=== PATIENT | female | born 1955 | race Caucasian/White ===

== ENCOUNTER 2023-09-05 11:50 | Outpatient (OUT) | payer OTHER, SELFPAY ==
[2023-09-05 12:23] LABS: Basophils Absolute Auto 0.1 10^3/uL (0.0-0.1); Basophils Percent Auto 1.2 % (0.2-2.0); Eosinophils Absolute Auto 0.1 10^3/uL (0.0-0.7); Eosinophils Percent Auto 1.6 % (0.9-7.0); Hematocrit 36.4 % (36.0-48.0); Hemoglobin 12.1 g/dL (12.0-16.0); Immature Granulocytes Abs Auto 0.02 10^3/uL (0.00-0.03); Immature Granulocytes Pct Auto 0.5 % (0.0-0.5); Lymphocytes Absolute Auto 1.6 10^3/uL (1.2-3.8); Lymphocytes Percent Auto 37.8 % (20.5-60.0); Mean Corpuscular HGB Conc 33.2 g/dL (29.9-35.2); Mean Corpuscular Hemoglobin 29.7 pg (26.7-34.0); Mean Corpuscular Volume 89.2 fL (81.0-99.0); Mean Platelet Volume 9.2 fL (9.5-13.5); Monocytes Absolute Auto 0.4 10^3/uL (0.3-0.8); Monocytes Percent Auto 8.1 % (1.7-12.0); Neutrophils Absolute Auto 2.2 10^3/uL (1.4-6.5); Neutrophils Percent Auto 50.8 % (43.0-75.0); Platelet Count 204 10^3/uL (150-450); Red Blood Count 4.08 10^6/uL (4.20-5.40); White Blood Count 4.3 10^3/uL (4.0-11.0)
--- NOTE | 2023-09-05 12:39 | CA_ITS ---
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: : [id number] Requested By: VALDO DUNCAN Order Number: [id number] Reading MD: SUSAN ORDOÑEZ Interpretive Statements Predominant rhythm is sinus with average rate of 85 bpm TAchycardia (22% burden) - max rate of 230 bpm (associatd with brief episdoe of PSVT) - 23 episodes of PSVT w/ longest duration 44 bpm - longest episode of 3h 53m with rates between 116-137 bpm Bradycardia - min rate of 52 bpm - longest episode of 2m 30s with rates between 52-58 bpm Ventricular ectopy - 18 PVC Patient triggered events: 4 - associated with symptoms of palpitations, SOB and lightheadedness - associated with rates of 101 bpm and the remainder NSR IMpression: Predominant rhythm is sinus with average rate of 85 bpm Fastest rate of 230 bpm and slowest rate of 52 bpm 18 PVC 23 episodes of PSVT Fastest rate of 230 associated with brief episode of PSVT Tachycardia burden of 22% total No atrial fib No blocks or pauses Electronically Signed On 10-01-2023 7:22:55 EST by SUSAN ORDOÑEZ
[2023-09-05 12:40] LABS: Estimated Average Glucose 120 mg/dL; Glycohemoglobin A1C 5.8 % (4.5-6.2)
[2023-09-05 13:03] LABS: Microalbumin Urine Random <1.3 mg/dL (<=30.0)
[2023-09-05 13:07] LABS: Free T4 2.09 ng/dL (0.76-1.46)
[2023-09-05 13:17] LABS: Alanine Aminotransferase 40 U/L (14-59); Albumin Globulin Ratio 1.1; Albumin Level 3.5 g/dL (3.4-5.0); Alkaline Phosphatase 68 U/L (46-116); Anion Gap 14.5; Aspartate Amino Transferase 19 U/L (15-37); BUN Creatinine Ratio 31.1; Bilirubin Direct 0.2 mg/dL (0.0-0.2); Bilirubin Total 0.9 mg/dL (0.2-1.0); Calcium 8.5 mg/dL (8.5-10.1); Carbon Dioxide 27.9 mmol/L (21.0-32.0); Chloride 105 mmol/L (98-107); Chol HDL Ratio 2.6; Cholesterol 188 mg/dL (<=200); Estimated GFR (African America >60 (>=60); Estimated GFR (Non-African Ame >60 (>=60); Free T3 3.06 pg/mL (2.18-3.98); Globulin 3.1 g/dL; Glucose 94 mg/dL (74-106); HDL Cholesterol 71 mg/dL (40-60); Potassium 3.4 mmol/L (3.5-5.1); Sodium 144 mmol/L (136-145); Thyroid Stimulating Hormone <0.007 uIU/mL (0.358-3.740); Total Protein 6.6 g/dL (6.4-8.2); Triglycerides 59 mg/dL (<=150); VLDL CHOLESTEROL 11.8 mg/dL
== END 2023-09-05 11:51 | disposition home or self-care (01) ==
LOC: CARD 11:54
PROVIDERS: PCP Family Medicine; Visit Provider Family Medicine
DX: R00.2 Palpitations (principal); E11.65 Type 2 diabetes mellitus with hyperglycemia; I10 Essential (primary) hypertension; Z79.899 Other long term (current) drug therapy; E03.9 Hypothyroidism, unspecified; E78.5 Hyperlipidemia, unspecified
CPT/HCPCS: 36415; 80048; 80061; 80076; 82043; 83036; 84439; 84443; 84481; 85025; 93246

== ENCOUNTER 2024-04-16 09:43 | Outpatient (OUT) | payer OTHER, SELFPAY ==
--- OUTSIDE RECORDS SUMMARY | 2024-04-16 09:47 | XMS_ITS | CCD ---
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 Name Role Phone DR VALDO DUNCAN Attending Unavailable DR VALDO DUNCAN Consulting Unavailable DR VALDO DUNCAN Primary Care Unavailable DR VALDO DUNCAN Admitting Unavailable Marlin Verduzco Unavailable VALDO DUNCAN Attending Unavailable VALDO DUNCAN Attending Unavailable VALDO DUNCAN Attending Unavailable MOMO HIGUERA Attending Unavailable MOMO HIGUERA Referring Unavailable Medications Current Medications Medication Drug Class(es) Dates Sig (Normalized) Sig (Original) glipiZIDE (1 source) Sulfonylurea glipiZIDE Active levothyroxine sodium 0.2 mg oral tablet (1 source) l-Thyroxine Synthroid 200 MCG 0.5 tablet every morning on an empty stomach Orally Once a day for 30 day(s) Active lisinopril 20 mg oral tablet (1 source) Angiotensin Converting Enzyme Inhibitor take 1 tablet by mouth every twenty-four hours Prinivil 20 MG 1 tablet Orally Once a day for 30 day(s) Active metFORMIN (1 source) Biguanide metFORMIN HCl Active nitrofurantoin, macrocrystals 25 mg / nitrofurantoin, monohydrate 75 mg oral capsule (1 source) Nitrofuran Antibacterial Start: 11-24-2021 take 1 capsule by mouth every twelve hours Macrobid 100 MG 1 cap(s) Orally bid for 5 day(s) Nov, Active phenazopyridine hydrochloride 200 mg oral tablet (1 source) Start: 11-24-2021 take 1 tablet by mouth every eight hours Pyridium 200 MG 1 tablet after meals Orally Three times a day for 2 day(s) Nov, Active Problems Problem Classification Problem Date Documented Da te Episodic/Chronic Fracture of upper limb (1 source) Closed fracture of metacarpal bone; Translations: [Fracture of hand, closed] Episodic Genitourinary symptoms and ill-defined conditions (2 sources) Dysuria; Translations: [Hematuria, unspecified] Onset: 11-24-2021 Resolved: 11-24-2021 Episodic Urinary tract infections (1 source) Urinary tract infection, site not specified Onset: 11-24-2021 Resolved: 11-24-2021 Episodic Results Test Name Value Interpretation Reference Range Facility Urinalysis - AUTOMATEDon Appearance (U) clear [employer] Other Bilirubin Ql (U) moderate [employer] Other Color (U) brick red brown [employer] Other Glucose Ql (U) 100 [employer] Other Hemoglobin Ql (U) large [employer] Other Ketones Ql (U) 15 [employer] Other Leukocyte esterase Test strip Ql (U) large [facility] [employer] Other Nitrite Ql (U) Positive [employer] Other pH (U) 5.5 [pH] [facility] [employer] Other Protein Ql (U) >300 [employer] Other Specific gravity (U) [Rel density] 1.020 [facility] [employer] Other Urobilinogen (U) [Mass/Vol] mg/dL [facility] [employer] Other Urinalysis - AUTOMATED [employer] [employer] Other Urine Cultureon 11-24-2021 Bacteria identified Cx Nom (U) Reason for Exam Dysuria Urine ORGANISM: Escherichia coli (O:ESCCOL) [place] Count 25,000 Aerobic GOLDY Charge (NUC86) ------ SUSCEPTIBILITY ----- ORGANISM: O:ESCCOL ANTIBIOTIC INTERPRETATION GOLDY Amikacin S <16 Ampicillin S <8 Ampicillin/Sulbacta m S <8/4 Aztreonam S <4 Cefazolin S <2 Cefepime S <2 Ceftazidime S <1 Ceftazidime/Avibact am S <8 Ceftriaxone S <1 Ciprofloxacin S <1 Ertapenem S <0.5 Gentamicin S <4 Levofloxacin S <2 Meropenem S <1 Nitrofurantoin S <32 Piperacillin/Tazoba ctam S <16 Tetracycline S <4 Tigecycline S <2 Tobramycin S <4 Trimethoprim/Sulfam ethoxazole S <2/38 S = SUSCEPTIBLE I = INTERMEDIATE R = RESISTANT BLANK = DATA NOT AVAILABLE, OR DRUG NOT ADVISABLE OR TESTED R* = RESISTANCE DUE TO EXTENDED SPECTRUM BETA-LACTAMASES ESBL = EXTENDED SPECTRUM BETA-LACTAMASE TFG = THYMIDINE-DEPENDENT STRAIN KATARINA = BETA-LACTAMASE POSITIVE IB = INDUCIBLE BETA-LACTAMASE. APPEARS IN PLACE OF 'S' WITH SPECIES KNOWN TO POSSESS INDUCIBLE BETA-LACTAMASES. POTENTIALLY THEY MAY BECOME RESISTANT TO ALL B-LACTAM DRUGS. PERFORMED BY: [facility] [address] [place] [address] PATHOLOGIST HEALTH SPECIALIST GAYE KELSEY M.D. Normal [facility] Comment on above: Performed By: #### C UU #### [facility] [address] CBC AUTO DIFFon 05-02-2021 BASO # 0.1 103/ul Normal 0.0-0.1 [facility] Comment on above: Performed By: #### C BC #### [facility] [address] [place] [address] Ting Madhavi Basophils/100 WBC (Bld) 0.9 % Normal 0.2-2.0 [facility] Comment on above: Performed By: #### C BC #### [facility] [address] [place] [address] Ting Madhavi EO # 0.0 103/ul Normal 0.0-0.7 [facility] Comment on above: Performed By: #### C BC #### [facility] [address] [place] [address] Ting Madhavi Eosinophils/100 WBC (Bld) 0.7 % Critically low 0.9-7.0 [facility] Comment on above: Performed By: #### C BC #### [facility] [address] [place] [address] Ting Hendrickson Erythrocyte distribution width (RBC) [Ratio] 12.5 % Normal 11.0-15.0 [facility] Comment on above: Performed By: #### C BC #### [facility] [address] [place] [address] Ting Hendrickson Hematocrit (Bld) [Volume fraction] 42.5 % Normal 36.0-48.0 [facility] Comment on above: Performed By: #### C BC #### [facility] [address] [place] [address] Ting Hendrickson Hemoglobin (Bld) [Mass/Vol] 14.0 g/dL Normal 12.0-16.0 [facility] Comment on above: Performed By: #### C BC #### [facility] [address] [place] [address] Tingluc Hendrickson IG # 0.04 10e3/ul Critically high 0.00-0.03 [facility] Comment on above: Performed By: #### C BC #### [facility] [address] [place] [address] Ting Hendrickson IG % 0.7 % Critically high 0.0-0.5 [facility] Comment on above: Performed By: #### C BC #### [facility] [address] [place] [address] Tingluc Ericen LYMPH # 1.5 103/ul Normal 1.2-3.8 [facility] Comment on above: Performed By: #### C BC #### [facility] [address] [place], [place] [id number] Ting Hendrickson Lymphocytes/100 WBC (Bld) 27.2 % Normal 20.5-60.0 [facility] Comment on above: Performed By: #### C BC #### [facility] [address] [place] [address] Ting Hendrickson MANUAL DIFF REQ NO Normal [facility] Comment on above: Performed By: #### C BC #### [facility] [address] [place], [place] [address] Tingluc Hendrickson MCH (RBC) [Entitic mass] 29.6 pg Normal 26.7-34.0 [facility] Comment on above: Performed By: #### C BC #### [facility] [address] [place] [id number] Tingluc Hendrickson MCHC (RBC) [Mass/Vol] 32.9 g/dL Normal 29.9-35.2 [facility] Comment on above: Performed By: #### C BC #### [facility] [address] [place] [id number] Tingluc Hendrickson MCV (RBC) [Entitic vol] 89.9 fL Normal 81.0-99.0 [facility] Comment on above: Performed By: #### C BC #### [facility] [address] [place], [place] [id number] Ting Madhavi MONO # 0.4 103/ul Normal 0.3-0.8 [facility] Comment on above: Performed By: #### C BC #### [facility] [address] [id number] Ting Ericen Monocytes/100 WBC (Bld) 6.8 % Normal 1.7-12.0 [facility] Comment on above: Performed By: #### C BC #### [facility] [address] [place] [id number] Tingluc Ericen NEUT # 3.6 103/ul Normal 1.4-6.5 [facility] Comment on above: Performed By: #### C BC #### [facility] [address] [place], [place] [id number] Ting Madhavi Neutrophils/100 WBC (Bld) 63.7 % Normal 43.0-75.0 [facility] Comment on above: Performed By: #### C BC #### [facility] [address] [place] [id number] Ting Madhavi Platelet mean volume (Bld) [Entitic vol] 10.2 fL Normal 9.5-13.5 [facility] [place] [facility] Comment on above: Performed By: #### C BC #### [facility] [address] [place], [place] [address] Ting Madhavi PLT 243 103/ul Normal 150-450 [facility] Comment on above: Performed By: #### C BC #### [facility] [address] [place], [place] [address] Ting Madhavi RBC 4.73 106/ul Normal 4.20-5.40 [facility] [place] [facility] Comment on above: Performed By: #### C BC #### [facility] [address] [place], [place] [address] Ting Madhavi WBC 5.6 103/ul Normal 4.0-11.0 [facility] Comment on above: Performed By: #### C BC #### [facility] [address], [place] [address] Ting Madhavi FREE T3on 05-02-2021 FREE T3 1.80 pg/mlL Critically low 2.77-5.27 [facility] Comment on above: Performed By: #### T SH, LIVER, LIPID, FT3, BMP #### [facility] [address] [place], [place] [address] Ting Madhavi FREE T4on 05-02-2021 Free T4 [Mass/Vol] 1.43 ng/dL Normal 0.78-2.19 [facility] Comment on above: Performed By: #### F T4 #### [facility] [address], [place] [address] Ting Madhavi GLYCOHEMOGLOBIN A1Con 2020 ADA RECOMMENDATION ADA THERAPEUTIC TARGET 6.0 - 7.0 ACTION SUGGESTED > 7.0 Normal [facility] [place] [facility] Comment on above: Performed By: #### A 1C #### [facility] [address], [place] [address] Ting Madhavi Glucose [Mass/Vol] 280 mg/dL Normal [facility] Comment on above: Performed By: #### A 1C #### [facility] [address], [place] [address] Ting Madhavi HbA1c (Bld) [Mass fraction] 11.4 % Critically high <=6.0 [facility] [place] [facility] Comment on above: Performed By: #### A 1C #### [facility] [address] [place], [place] [address] Ting Madhavi LIPID PROFILEon 05-02-2021 CHOL-HDL RATIO NORM SEE BELOW Normal [facility] Comment on above: Result Comment: 3.3 - 4.4 LOW RISK 4.4 - 7.1 AVERAGE RISK 7.1 - 11.0 MODERATE RISK >11.0 HIGH RISK Performed By: #### T SH, LIVER, LIPID, FT3, BMP #### [facility] [address], [place] [address] Ting Madhavi Cholesterol [Mass/Vol] 261 mg/dL Critically high <=200 [facility] Comment on above: Performed By: #### T SH, LIVER, LIPID, FT3, BMP #### [facility] [address], [place] [address] Ting Madhavi Cholesterol in HDL [Mass/Vol] 51 mg/dL Normal [facility] Comment on above: Performed By: #### T SH, LIVER, LIPID, FT3, BMP #### [facility] [address] [place], [place] [address] Ting Madhavi Cholesterol in LDL [Mass/Vol] 182.4 mg/dL Normal [facility] Comment on above: Performed By: #### T SH, LIVER, LIPID, FT3, BMP #### [facility] [address], [place] [address] Ting Madhavi Cholesterol.total/Ch olesterol in HDL [Mass ratio] 5.1 {ratio} Normal [facility] Comment on above: Performed By: #### T SH, LIVER, LIPID, FT3, BMP #### [facility] [address], [place] [address] Ting Madhavi HDL NORMAL > or = 60 mg/dl - LOW CARDIOVASCULAR RISK <40 mg/dl - HIGH CARDIOVASCULAR RISK Normal [facility] Comment on above: Performed By: #### T SH, LIVER, LIPID, FT3, BMP #### [facility] [address] [place], [place] [address] Ting Madhavi LDL CALC NORMAL SEE BELOW Normal [facility] Comment on above: Result Comment: <100 mg/dl OPTIMAL 100 - 129 mg/dl NEAR OR ABOVE OPTIMAL 130 - 159 mg/dl BORDERLINE HIGH 160 - 189 mg/dl HIGH >190 mg/dl VERY HIGH Performed By: #### T SH, LIVER, LIPID, FT3, BMP #### [facility] [address] [place] [address] Ting Madhavi Triglyceride [Mass/Vol] 138 mg/dL Normal <=150 [facility] Comment on above: Performed By: #### T SH, LIVER, LIPID, FT3, BMP #### [facility] [address] [place] [address] Ting Madhavi VLDL CALC 27.6 mg/dL Normal [facility] Comment on above: Performed By: #### T SH, LIVER, LIPID, FT3, BMP #### [facility] [address] [place] [address] Tingluc Ericen LIVER PROFILEon 05-02-2021 Albumin [Mass/Vol] 3.7 g/dL Normal 3.5-5.0 [facility] Comment on above: Performed By: #### T SH, LIVER, LIPID, FT3, BMP #### [facility] [address] [place] [address] Ting Madhavi Albumin/Globulin [Mass ratio] 1.0 {ratio} Normal [facility] Comment on above: Performed By: #### T SH, LIVER, LIPID, FT3, BMP #### [facility] [address] [place] [id number] Ting Madhavi ALP [Catalytic activity/Vol] 88 U/L Normal 38-126 [facility] Comment on above: Performed By: #### T SH, LIVER, LIPID, FT3, BMP #### [facility] [address] [place] [id number] Ting Madhavi ALT [Catalytic activity/Vol] 75 U/L Critically high 9-52 [facility] Comment on above: Performed By: #### T SH, LIVER, LIPID, FT3, BMP #### [facility] [address] [place] [id number] Ting Madhavi AST [Catalytic activity/Vol] 49 U/L Critically high 14-36 [facility] Comment on above: Performed By: #### T SH, LIVER, LIPID, FT3, BMP #### [facility] [address] [place] [address] Ting Madhavi BILI, CONJUGATED 0.2 mg/dL Normal 0.0-0.3 [facility] Comment on above: Performed By: #### T SH, LIVER, LIPID, FT3, BMP #### [facility] [address] [place] [address] Ting Madhavi Bilirubin [Mass/Vol] 1.0 mg/dL Normal 0.2-1.3 [facility] Comment on above: Performed By: #### T SH, LIVER, LIPID, FT3, BMP #### [facility] [address] [place] [address] Ting Madhavi Globulin (S) [Mass/Vol] 3.7 g/dL Normal [facility] Comment on above: Performed By: #### T SH, LIVER, LIPID, FT3, BMP #### [facility] [address] [place] [address] Ting Madhavi Protein [Mass/Vol] 7.4 g/dL Normal 6.1-8.2 [facility] Comment on above: Performed By: #### T SH, LIVER, LIPID, FT3, BMP #### [facility] [address] [place] [address] Ting Madhavi PROF CHEM 8 (BAS METB)on Anion gap [Moles/Vol] 12.7 mmol/L Normal [facility] Comment on above: Performed By: #### T SH, LIVER, LIPID, FT3, BMP #### [facility] [address] [place] [address] Ting Madhavi Calcium [Mass/Vol] 9.4 mg/dL Normal 8.4-10.2 [facility] Comment on above: Performed By: #### T SH, LIVER, LIPID, FT3, BMP #### [facility] [address] [place] [address] Ting Madhavi Chloride [Moles/Vol] 98 mmol/L Normal 98-107 [facility] Comment on above: Performed By: #### T SH, LIVER, LIPID, FT3, BMP #### [facility] [address] [place] [address] Ting Madhavi CO2 [Moles/Vol] 26.6 mmol/L Normal 22.0-30.0 [facility] Comment on above: Performed By: #### T SH, LIVER, LIPID, FT3, BMP #### [facility] [address] [place] [address] Ting Madhavi Creatinine [Mass/Vol] 1.00 mg/dL Normal 0.52-1.04 [facility] Comment on above: Performed By: #### T SH, LIVER, LIPID, FT3, BMP #### [facility] [address] [place] [address] Ting Madhavi EGFR-AF CYPRIOT >60 Normal >=60 [facility] Comment on above: Performed By: #### T SH, LIVER, LIPID, FT3, BMP #### [facility] [address] [place] [address] Ting Madhavi EGFR-NON AF CYPRIOT 56 mL/min/1.73m2 Critically low >=60 [facility] Comment on above: Performed By: #### T SH, LIVER, LIPID, FT3, BMP #### [facility] [address] [place] [address] Ting Madhavi Glucose [Mass/Vol] 330 mg/dL Critically high 74-106 [facility] Comment on above: Performed By: #### T SH, LIVER, LIPID, FT3, BMP #### [facility] [address] [place] [address] Ting Madhavi Potassium [Moles/Vol] 4.3 mmol/L Normal 3.4-5.0 [facility] Comment on above: Performed By: #### T SH, LIVER, LIPID, FT3, BMP #### [facility] [address] [place] [address] Ting Madhavi Sodium [Moles/Vol] 133 mmol/L Critically low 137-145 [facility] Comment on above: Performed By: #### T SH, LIVER, LIPID, FT3, BMP #### [facility] [address] [place] [address] Ting Hendrickson Urea nitrogen [Mass/Vol] 19.0 mg/dL Critically high 7.0-17.0 [facility] Comment on above: Performed By: #### T SH, LIVER, LIPID, FT3, BMP #### [facility] [address] [place], [place] [id number] Ting Hendrickson Urea nitrogen/Creatinine [Mass ratio] 19.0 mg/mg Normal [facility] Comment on above: Performed By: #### T SH, LIVER, LIPID, FT3, BMP #### [facility] [address] [place] [address] iTng Hendrickson TSHon 05-02-2021 TSH 0.676 uIU/mL Normal 0.470-4.680 [facility] Comment on above: Performed By: #### T SH, LIVER, LIPID, FT3, BMP #### [facility] [address] [place] [address] Ting Hendrickson TSH RANGE SEE BELOW Normal [facility] Comment on above: Result Comment: <0.3 4 UIU/ml HYPERTHYROID 0.34-5.60 UIU/ml EUTHYROID >5.60 UIU/ml HYPOTHYROID Performed By: #### T SH, LIVER, LIPID, FT3, BMP #### [facility] [address] [place] [address] Ting Hendrickson Vital Signs Date Time Vital Sign Value Performing Clinician Facility 11-24-2021 15:10-0500 Body height 162.56 cm Marlin Verduzco Other [facility] [employer] Other 11-24-2021 15:10-0500 Body mass index (BMI) [Ratio] 33.3 kg/m2 Marlin Verduzco Other [facility] [facility] [employer] Other 11-24-2021 15:10-0500 Body temperature 97.6 [degF] Marlin Verduzco Other [facility] [employer] Other 11-24-2021 15:10-0500 Body weight 88 kg Marlin Luba Other [facility] Other 11-24-2021 15:10-0500 Diastolic blood pressure 75 mm[Hg] Marlin [place]uba Other [facility] Other 11-24-2021 15:10-0500 Respiratory rate 18 /min Marlin Luba Other [facility] Other 11-24-2021 15:10-0500 SaO2% (BldA) [Mass fraction] 98 % Marlin Luba Other [facility] Other 11-24-2021 15:10-0500 Systolic blood pressure 124 mm[Hg] Marlin Luba Other [facility] [employer] Other Encounters Encounter Date Encounter Type Care Provider Facility Start: 04-05-2024 End: 04-05-2024 ambulatory MOMO HIGUERA Not Available Start: 03-17-2024 End: 03-17-2024 ambulatory VALDO DUNCAN Not Available Start: 02-19-2024 End: 02-19-2024 ambulatory VALDO DUNCAN Not Available Start: 12-18-2023 End: 12-18-2023 ambulatory VALDO DUNCAN Not Available Start: 11-24-2021 End: 11-24-2021 ambulatory Marlin Verduzco Other [facility] [employer] Other Start: 11-24-2021 Office outpatient ne w 20 minutes Marlin Verduzco [facility] Start: 05-10-2021 Encounter for genera l adult medical examination without abnormal findings DR VALDO DUNCAN [facility] Start: 05-02-2021 End: 05-03-[address] VALDO DUNCAN Facility: Start: 05-02-2021 End: 05-03-2021 Encounter for general adult medical examination without abnormal findings DR VALDO DUNCAN Facility:[facility] Payers Date Payer Category Payer Unknown [id number] 1958 Unknown [id number] 1955 Unknown [id number] 2.16.84 [id number] 1955 Unknown [id number] 2.16.84 [id number] 1955 Unknown [id number] 2.16.84 [id number] 1955 Unknown [id number] 2.16.84 [id number] 1955 Unknown [id number] 2.16.84 [id number] 1955 Unknown [id number] 2.16.84 [id number] Medicare [id number] 2.1 [id number] Social History Date Type Detail Facility Unknown if ever smoked [facility] [employer] Other Sex Assigned At Sex Assigned At Bir th [facility] Other Evaluation note 11-24-2021 Note Date & Type Note Facility 11-24-2021 Evaluation note Encounter Date Diagnosis Assessment Notes Nov, Dysuria (ICD-10 - R30.0) Nov, Urinary tract infection, site not specified (ICD-10 - N39.0) Drink plenty fluids, get plenty of rest. Take the Macrobid and Pyridium as prescribed until gone. Follow-up with your family physician if no improvement in 2 to 3 days. Take Tylenol or Motrin as needed for aches pains or fevers Nov, Hematuria, unspecified (ICD-10 - R31.9) [facility] [employer] Other History general Narrative - Reported Note Date & Type Note Facility History general Narrative - Reported Type Medical History Gout Medical History thyroid disease Medical History hypertension Medical History tachacardia Medical History diabetes Surgical History cholecystectomy Surgical History C section Surgical History carpal tunnel release-raul wrist Hospitalization History see surgcial hx Hospitalization History childbirth [facility] [employer] Other Summary Purpose Family History No Family History Records FoundNo Family History Records FoundNo Family History Records Found Advance Directives No Advanced Directives Records FoundNo Advanced Directives Records FoundNo Advanced Directives Records Found Additional Source Comments INFORMATION SOURCE (unrecogn ized section and content) DATE CREATED AUTHOR 05/11/2021 [facility] DATE CREATED AUTHOR AUTHOR'S ORGANIZ ATION 11/27/2021 [facility] DATE CREATED AUTHOR AUTHOR'S ORGANIZ ATION 04/10/2024 [facility] EPIC REASON FOR VISIT (unrecogniz ed section and content) DYSURIA FOR RECORDS PERTAINING TO PATIENTS WHO ARE OR HAVE BEEN ENROLLED IN A CHEMICAL DEPENDENCY/SUBSTANCEABUSE PROGRAM, SOME INFORMATION MAY BE OMITTED. This clinical summary was aggregated from multiple sources. Caution should be exercised in using it in the provision of clinical care. This summary normalizes information from multiple sources, and as a consequence, information in this document may materially change the coding, format and clinical context of patient data. In addition, data may be omitted in some cases. CLINICAL DECISIONS SHOULD BE BASED ON THE PRIMARY CLINICAL RECORDS. [employer] provides no warranty or guarantee of the accuracy or completeness of information in this document.
--- NOTE | 2024-04-16 10:06 | MM_ITS ---
Patient Name: OCTAVIO QUIROS MR#: [id number] : 1955 Exam Date: 04/16/2024 Ordering Doctor: DR Wilfred Crystal . RADIOLOGY REPORT PROCEDURE: MM TOMOSYNTHESIS SCREENING BI COMPARISON: None. INDICATIONS: Screening mammogram Calculator Name NCI Breast Cancer Risk Assessment Tool 5 Year Breast Cancer Risk 2.10% Lifetime Breast Cancer Risk 7.20% Personal Breast Cancer No Personal Ovarian Cancer No Treatments None Family Cancers Aunt-maternal with cervical cancer at age 48. LOCATION: [facility] BREAST COMPOSITION: There are scattered areas of fibroglandular density. FINDINGS: DIAGNOSTIC CATEGORY 1--NEGATIVE. Scattered benign-appearing lymph nodes are present. RIGHT BREAST: No significant suspicious finding. LEFT BREAST: No significant suspicious finding. RECOMMENDATIONS: ROUTINE MAMMOGRAM AND CLINICAL EVALUATION IN 12 MONTHS. PLEASE NOTE: A NORMAL MAMMOGRAM DOES NOT EXCLUDE THE POSSIBILITY OF BREAST CANCER. A CLINICALLY SUSPICIOUS PALPABLE LUMP SHOULD BE BIOPSIED. Dictated by: Abdon Bryson MD on 04/16/2024 at 11:38 Approved by: Abdon Bryson MD on 04/16/2024 at 11:40
[2024-04-16 11:19] LABS: Estimated Average Glucose 103 mg/dL; Glycohemoglobin A1C 5.2 % (4.5-6.2)
== END 2024-04-16 09:44 | disposition home or self-care (01) ==
LOC: LAB 09:43
PROVIDERS: PCP Family Medicine; Visit Provider Family Medicine
DX: Z12.31 Encounter for screening mammogram for malignant neoplasm of breast (principal); Z80.49 Family history of malignant neoplasm of other genital organs
CPT/HCPCS: 36415; 77063; 77067; 83036

== ENCOUNTER 2024-04-16 09:45 | Outpatient (OUT) | payer OTHER, SELFPAY ==
--- OUTSIDE RECORDS SUMMARY | 2024-04-16 09:49 | XMS_ITS | CCD ---
Author Organization [facility] Care Team Providers Care Dialysis Chief Equipment Technician Name Role Phone DR VALDO DUNCAN Attending [...] Facility Urinalysis - AUTOMATEDon Appearance (U) clear [facility] Other Bilirubin Ql (U) moderate [place] [facility] Other Color (U) brick red brown [facility] Other Glucose Ql (U) 100 [facility] Other Hemoglobin Ql (U) large [facility] Other Ketones Ql (U) 15 [facility] Other Leukocyte esterase Test strip Ql (U) large [facility] Other Nitrite Ql (U) Positive [facility] Other pH (U) 5.5 [pH] [facility] Other Protein Ql (U) >300 [facility] Other Specific gravity (U) [Rel density] 1.020 [facility] Other Urobilinogen (U) [Mass/Vol] mg/dL [facility] Other Urinalysis - AUTOMATED [facility] Other Urine Cultureon 11-24-2021 Bacteria identified Cx Nom (U) Reason for Exam Dysuria Urine ORGANISM: Escherichia coli (O:ESCCOL) [place] Count 25,000 Aerobic GOLDY Charge (NUC86) ------ [...] RESISTANT TO ALL B-LACTAM DRUGS. PERFORMED BY: [facility] [address] [place] [address] PATHOLOGIST AIRCRAFT COMMUNICATOR GAYE KELSEY M.D. Normal [facility] Comment on above: Performed By: #### C UU #### [facility] [address] CBC AUTO DIFFon 05-02-2021 BASO # 0.1 103/ul Normal 0.0-0.1 [facility] Comment on above: Performed By: #### C BC #### [facility] [address] [place] [address] Ting Madhavi Basophils/100 WBC (Bld) 0.9 % Normal 0.2-2.0 [facility] Comment on above: Performed By: #### C BC #### [facility] [address] [place] [address] Ting Madhavi EO # 0.0 103/ul Normal 0.0-0.7 [facility] Comment on above: Performed By: #### C BC #### [facility] [address] [place] [address] Ting Madhavi Eosinophils/100 WBC (Bld) 0.7 % Critically low 0.9-7.0 [facility] Comment on above: Performed By: #### C BC #### [facility] [address] [place] [address] Ting Hendrickson Erythrocyte distribution width (RBC) [Ratio] 12.5 % Normal 11.0-15.0 [facility] Comment on above: Performed By: #### C BC #### [facility] [address] [place] [address] Ting Hendrickson Hematocrit (Bld) [Volume fraction] 42.5 % Normal 36.0-48.0 [facility] Comment on above: Performed By: #### C BC #### [facility] [address] [place] [address] Ting Hendrickson Hemoglobin (Bld) [Mass/Vol] 14.0 g/dL Normal 12.0-16.0 [facility] Comment on above: Performed By: #### C BC #### [facility] [address] [place] [address] Tingluc Hendrickson IG # 0.04 10e3/ul Critically high 0.00-0.03 [facility] Comment on above: Performed By: #### C BC #### [facility] [address] [place] [address] Ting Hendrickson IG % 0.7 % Critically high 0.0-0.5 [facility] Comment on above: Performed By: #### C BC #### [facility] [address] [place] [address] Tingluc Ericen LYMPH # 1.5 103/ul Normal 1.2-3.8 [facility] Comment on above: Performed By: #### C BC #### [facility] [address] [place], [place] [id number] Ting Hendrickson Lymphocytes/100 WBC (Bld) 27.2 % Normal 20.5-60.0 [facility] Comment on above: Performed By: #### C BC #### [facility] [address] [place] [address] Ting Hendrickson MANUAL DIFF REQ NO Normal [facility] Comment on above: Performed By: #### C BC #### [facility] [address] [place], [place] [address] Tingluc Hendrickson MCH (RBC) [Entitic mass] 29.6 pg Normal 26.7-34.0 [facility] Comment on above: Performed By: #### C BC #### [facility] [address] [place] [id number] Tingluc Hendrickson MCHC (RBC) [Mass/Vol] 32.9 g/dL Normal 29.9-35.2 [facility] Comment on above: Performed By: #### C BC #### [facility] [address] [place] [id number] Tingluc Hendrickson MCV (RBC) [Entitic vol] 89.9 fL Normal 81.0-99.0 [facility] Comment on above: Performed By: #### C BC #### [facility] [address] [place], [place] [id number] Ting Madhavi MONO # 0.4 103/ul Normal 0.3-0.8 [facility] Comment on above: Performed By: #### C BC #### [facility] [address] [place] [id number] Ting Ericen Monocytes/100 WBC (Bld) 6.8 % Normal 1.7-12.0 [facility] Comment on above: Performed By: #### C BC #### [facility] [address] [place] [id number] Tingluc Ericen NEUT # 3.6 103/ul Normal 1.4-6.5 [facility] Comment on above: Performed By: #### C BC #### [facility] [address] [place], [place] [id number] Ting Madhavi Neutrophils/100 WBC (Bld) 63.7 % Normal 43.0-75.0 [facility] Comment on above: Performed By: #### C BC #### [facility] [address] [id number] Ting Madhavi Platelet mean volume (Bld) [Entitic vol] 10.2 fL Normal 9.5-13.5 [facility] Comment on above: Performed By: #### C BC #### [facility] [address] [place], [place] [address] Ting Madhavi PLT 243 103/ul Normal 150-450 [facility] Comment on above: Performed By: #### C BC #### [facility] [address] [place], [place] [address] Ting Madhavi RBC 4.73 106/ul Normal 4.20-5.40 [facility] Comment on above: Performed By: #### C BC #### [facility] [address] [place], [place] [address] Ting Madhavi WBC 5.6 103/ul Normal 4.0-11.0 [facility] Comment on above: Performed By: #### C BC #### [facility] [address] [place], [place] [address] Ting Madhavi FREE T3on 05-02-2021 FREE T3 1.80 pg/mlL Critically low 2.77-5.27 [facility] Comment on above: Performed By: #### T SH, LIVER, LIPID, FT3, BMP #### [facility] [address] [place], [place] [address] Ting Madhavi FREE T4on 05-02-2021 Free T4 [Mass/Vol] 1.43 ng/dL Normal 0.78-2.19 [facility] Comment on above: Performed By: #### F T4 #### [facility] [address] [place], [place] [address] Ting Madhavi GLYCOHEMOGLOBIN A1Con 2020 ADA RECOMMENDATION ADA THERAPEUTIC TARGET 6.0 - 7.0 ACTION SUGGESTED > 7.0 Normal [facility] Comment on above: Performed By: #### A 1C #### [facility] [address] [place], [place] [address] Ting Madhavi Glucose [Mass/Vol] 280 mg/dL Normal [facility] Comment on above: Performed By: #### A 1C #### [facility] [address] [place], [place] [address] Ting Madhavi HbA1c (Bld) [Mass fraction] 11.4 % Critically high <=6.0 [facility] Comment on above: Performed By: #### A 1C #### [facility] [address] [place], [place] [address] Ting Madhavi LIPID PROFILEon 05-02-2021 CHOL-HDL RATIO NORM SEE BELOW Normal [facility] Comment on above: Result Comment: 3.3 - 4.4 LOW RISK 4.4 - 7.1 AVERAGE RISK 7.1 - 11.0 MODERATE RISK >11.0 HIGH RISK Performed By: #### T SH, LIVER, LIPID, FT3, BMP #### [facility] [address] [place], [place] [address] Ting Madhavi Cholesterol [Mass/Vol] 261 mg/dL Critically high <=200 [facility] Comment on above: Performed By: #### T SH, LIVER, LIPID, FT3, BMP #### [facility] [address] [place], [place] [address] Ting Madhavi Cholesterol in HDL [Mass/Vol] 51 mg/dL Normal [facility] Comment on above: Performed By: #### T SH, LIVER, LIPID, FT3, BMP #### [facility] [address] [place], [place] [address] Ting Madhavi Cholesterol in LDL [Mass/Vol] 182.4 mg/dL Normal [facility] Comment on above: Performed By: #### T SH, LIVER, LIPID, FT3, BMP #### [facility] [address] [place], [place] [address] Ting Madhavi Cholesterol.total/Ch olesterol in HDL [Mass ratio] 5.1 {ratio} Normal [facility] Comment on above: Performed By: #### T SH, LIVER, LIPID, FT3, BMP #### [facility] [address] [place], [place] [address] Ting Madhavi HDL NORMAL > or = 60 mg/dl - LOW CARDIOVASCULAR RISK <40 mg/dl - HIGH CARDIOVASCULAR RISK Normal [facility] Comment on above: Performed By: #### T SH, LIVER, LIPID, FT3, BMP #### [facility] [address] [place], [place] [address] Ting Madhavi LDL CALC NORMAL SEE BELOW Normal [facility] Comment on above: Result Comment: <100 mg/dl OPTIMAL 100 - 129 mg/dl NEAR OR ABOVE OPTIMAL 130 - 159 mg/dl BORDERLINE HIGH 160 - 189 mg/dl HIGH >190 mg/dl VERY HIGH Performed By: #### T SH, LIVER, LIPID, FT3, BMP #### [facility] [address] [place] [address] Ting Madhavi Triglyceride [Mass/Vol] 138 mg/dL Normal <=150 [facility] Comment on above: Performed By: #### T SH, LIVER, LIPID, FT3, BMP #### [facility] [address] [place] [address] Ting Madhavi VLDL CALC 27.6 mg/dL Normal [facility] Comment on above: Performed By: #### T SH, LIVER, LIPID, FT3, BMP #### [facility] [address] [place] [address] Tingluc Ericen LIVER PROFILEon 05-02-2021 Albumin [Mass/Vol] 3.7 g/dL Normal 3.5-5.0 [facility] Comment on above: Performed By: #### T SH, LIVER, LIPID, FT3, BMP #### [facility] [address] [place] [address] Ting Madhavi Albumin/Globulin [Mass ratio] 1.0 {ratio} Normal [facility] Comment on above: Performed By: #### T SH, LIVER, LIPID, FT3, BMP #### [facility] [address] [place] [id number] Ting Madhavi ALP [Catalytic activity/Vol] 88 U/L Normal 38-126 [facility] Comment on above: Performed By: #### T SH, LIVER, LIPID, FT3, BMP #### [facility] [address] [place] [id number] Ting Madhavi ALT [Catalytic activity/Vol] 75 U/L Critically high 9-52 [facility] Comment on above: Performed By: #### T SH, LIVER, LIPID, FT3, BMP #### [facility] [address] [id number] Ting Madhavi AST [Catalytic activity/Vol] 49 U/L Critically high 14-36 [facility] Comment on above: Performed By: #### T SH, LIVER, LIPID, FT3, BMP #### [facility] [address] [place] [address] Ting Madhavi BILI, CONJUGATED 0.2 mg/dL Normal 0.0-0.3 [facility] Comment on above: Performed By: #### T SH, LIVER, LIPID, FT3, BMP #### [facility] [address] [place] [address] Ting Madhavi Bilirubin [Mass/Vol] 1.0 mg/dL Normal 0.2-1.3 [facility] Comment on above: Performed By: #### T SH, LIVER, LIPID, FT3, BMP #### [facility] [address] [place] [address] Ting Madhavi Globulin (S) [Mass/Vol] 3.7 g/dL Normal [facility] Comment on above: Performed By: #### T SH, LIVER, LIPID, FT3, BMP #### [facility] [address] [place] [address] Ting Madhavi Protein [Mass/Vol] 7.4 g/dL Normal 6.1-8.2 [facility] Comment on above: Performed By: #### T SH, LIVER, LIPID, FT3, BMP #### [facility] [address] [place] [address] Ting Madhavi PROF CHEM 8 (BAS METB)on Anion gap [Moles/Vol] 12.7 mmol/L Normal [facility] Comment on above: Performed By: #### T SH, LIVER, LIPID, FT3, BMP #### [facility] [address] [place] [address] Ting Madhavi Calcium [Mass/Vol] 9.4 mg/dL Normal 8.4-10.2 [facility] Comment on above: Performed By: #### T SH, LIVER, LIPID, FT3, BMP #### [facility] [address] [place] [address] Ting Madhavi Chloride [Moles/Vol] 98 mmol/L Normal 98-107 [facility] Comment on above: Performed By: #### T SH, LIVER, LIPID, FT3, BMP #### [facility] [address] [place] [address] Ting Madhavi CO2 [Moles/Vol] 26.6 mmol/L Normal 22.0-30.0 [facility] Comment on above: Performed By: #### T SH, LIVER, LIPID, FT3, BMP #### [facility] [address] [place] [address] Ting Madhavi Creatinine [Mass/Vol] 1.00 mg/dL Normal 0.52-1.04 [facility] Comment on above: Performed By: #### T SH, LIVER, LIPID, FT3, BMP #### [facility] [address] [place] [address] Ting Madhavi EGFR-AF BURKINAN >60 Normal >=60 [facility] Comment on above: Performed By: #### T SH, LIVER, LIPID, FT3, BMP #### [facility] [address] [place] [address] Ting Madhavi EGFR-NON AF BURKINAN 56 mL/min/1.73m2 Critically low >=60 [facility] Comment on above: Performed By: #### T SH, LIVER, LIPID, FT3, BMP #### [facility] [address] [place] [address] Ting Madhavi Glucose [Mass/Vol] 330 mg/dL Critically high 74-106 [facility] Comment on above: Performed By: #### T SH, LIVER, LIPID, FT3, BMP #### [facility] [address] [place] [address] Ting Madhavi Potassium [Moles/Vol] 4.3 mmol/L Normal 3.4-5.0 [facility] Comment on above: Performed By: #### T SH, LIVER, LIPID, FT3, BMP #### [facility] [address] [place] [address] Ting Madhavi Sodium [Moles/Vol] 133 mmol/L Critically low 137-145 [facility] Comment on above: Performed By: #### T SH, LIVER, LIPID, FT3, BMP #### [facility] [address] [place] [address] Ting Hendrickson Urea nitrogen [Mass/Vol] 19.0 mg/dL Critically high 7.0-17.0 [facility] Comment on above: Performed By: #### T SH, LIVER, LIPID, FT3, BMP #### [facility] [address] [place], [place] [id number] Ting Hendrickson Urea nitrogen/Creatinine [Mass ratio] 19.0 mg/mg Normal [facility] Comment on above: Performed By: #### T SH, LIVER, LIPID, FT3, BMP #### [facility] [address] [place] [address] Ting Hendrickson TSHon 05-02-2021 TSH 0.676 uIU/mL Normal 0.470-4.680 [facility] Comment on above: Performed By: #### T SH, LIVER, LIPID, FT3, BMP #### [facility] [address] [place] [address] Ting Hendrickson TSH RANGE SEE BELOW Normal [facility] Comment on above: Result Comment: <0.3 4 UIU/ml HYPERTHYROID 0.34-5.60 UIU/ml EUTHYROID >5.60 UIU/ml HYPOTHYROID Performed By: #### T SH, LIVER, LIPID, FT3, BMP #### [facility] [address] [place] [address] Ting Hendrickson Vital Signs Date Time Vital Sign Value Performing Clinician Facility 11-24-2021 15:10-0500 Body height 162.56 cm Marlin Verduzco Other [facility] Other 11-24-2021 15:10-0500 Body mass index (BMI) [Ratio] 33.3 kg/m2 Marlin Verduzco Other [facility] Other 11-24-2021 15:10-0500 Body temperature 97.6 [degF] Marlin Verduzco Other [facility] Other 11-24-2021 15:10-0500 Body weight 88 kg Marlin Luba Other [facility] Other 11-24-2021 15:10-0500 Diastolic blood pressure 75 mm[Hg] Marlin Luba Other [facility] Other 11-24-2021 15:10-0500 Respiratory rate 18 /min Marlin Luba Other [facility] Other 11-24-2021 15:10-0500 SaO2% (BldA) [Mass fraction] 98 % Marlin Luba Other [facility] Other 11-24-2021 15:10-0500 Systolic blood pressure 124 mm[Hg] Marlin Luba Other [facility] Other Encounters Encounter Date Encounter Type Care Provider Facility Start: 04-05-2024 End: 04-05-2024 ambulatory MOMO HIGUERA Not Available Start: 03-17-2024 End: 03-17-2024 ambulatory VALDO DUNCAN Not Available Start: 02-19-2024 End: 02-19-2024 ambulatory VALDO DUNCAN Not Available Start: 12-18-2023 End: 12-18-2023 ambulatory VALDO DUNCAN Not Available Start: 11-24-2021 End: 11-24-2021 ambulatory Marlin Verduzco Other [facility] Other Start: 11-24-2021 Office outpatient ne w 20 minutes Marlin Verduzco [facility] Start: 05-10-2021 Encounter for genera l adult medical examination without abnormal findings DR VALDO DUNCAN [facility] Start: 05-02-2021 End: 05-03-[address] VALDO DUNCAN Facility: Start: 05-02-2021 End: 05-03-2021 Encounter for general adult medical examination without abnormal findings DR VALDO DUNCAN Facility:[facility] Payers Date Payer Category Payer Unknown [id number] 1958 Unknown [id number] 1955 Unknown [id number] 2.16.84 [id number] 1955 Unknown [id number] 2.16.84 [id number] 1955 Unknown [id number] 2.16.84 [id number] 1955 Unknown [id number] 2.16.84 [id number] 1955 Unknown [id number] 2.16.84 [id number] 1955 Unknown [id number] 2.16.84 [id number] Medicare [id number] 2.1 [id number] Social History Date Type Detail Facility Unknown if ever smoked [facility] Other Sex Assigned At Sex Assigned At Bir th [facility] Other Evaluation note 11-24-2021 Note Date & [...] fevers Nov, Hematuria, unspecified (ICD-10 - R31.9) [facility] Other History general Narrative - Reported Note Date & Type Note Facility History general Narrative - Reported Type Medical History Gout Medical History thyroid disease Medical History hypertension Medical History tachacardia Medical History diabetes Surgical History cholecystectomy Surgical History C section Surgical History carpal tunnel release-raul wrist Hospitalization History see surgcial hx Hospitalization History childbirth [facility] Other Summary Purpose Family History No Family History Records FoundNo Family History Records FoundNo Family History Records Found Advance Directives No Advanced Directives Records FoundNo Advanced Directives Records FoundNo Advanced Directives Records Found Additional Source Comments INFORMATION SOURCE (unrecogn ized section and content) DATE CREATED AUTHOR 05/11/2021 [facility] DATE CREATED AUTHOR AUTHOR'S ORGANIZ ATION 11/27/2021 [facility] DATE CREATED AUTHOR AUTHOR'S ORGANIZ ATION 04/10/2024 [facility] EPIC REASON FOR VISIT (unrecogniz ed [...] BE BASED ON THE PRIMARY CLINICAL RECORDS. [employer] provides no warranty or guarantee of the accuracy or completeness of information in this document.
[2024-04-16 11:18] LABS: Alanine Aminotransferase 46 U/L (14-59); Albumin Globulin Ratio 1.3; Albumin Level 4.1 g/dL (3.4-5.0); Alkaline Phosphatase 88 U/L (46-116); Anion Gap 14.6; Aspartate Amino Transferase 21 U/L (15-37); BUN Creatinine Ratio 20.6; Bilirubin Total 1.2 mg/dL (0.2-1.0); Calcium 9.5 mg/dL (8.5-10.1); Carbon Dioxide 25.3 mmol/L (21.0-32.0); Chloride 105 mmol/L (98-107); Estimated GFR (African America 47 (>=60); Estimated GFR (Non-African Ame 39 (>=60); Globulin 3.1 g/dL; Glucose 95 mg/dL (74-106); Potassium 3.9 mmol/L (3.5-5.1); Sodium 141 mmol/L (136-145); Total Protein 7.2 g/dL (6.4-8.2)
[2024-04-16 13:12] LABS: Creatinine Urine Random 512.52 mg/dL (20.00-300.00); Microalbum Creatinine Ratio Ur 12.6 mg/g (0.0-29.9); Microalbumin Urine Random 6.5 mg/dL (<=30.0)
== END 2024-04-16 09:46 | disposition home or self-care (01) ==
LOC: LAB 09:46
PROVIDERS: PCP Family Medicine
DX: Z12.31 Encounter for screening mammogram for malignant neoplasm of breast (principal); Z80.49 Family history of malignant neoplasm of other genital organs; E11.69 Type 2 diabetes mellitus with other specified complication
CPT/HCPCS: 36415; 77063; 77067; 80053; 82043; 82570; 83036